=== PATIENT | male | born 1975 | race Two or more races ===

== ENCOUNTER 2020-10-09 02:59 | Emergency (ER) | payer OTHER, SELFPAY ==
[2020-10-09] VITALS (14 sets, daily range): BP systolic 130–176; BP diastolic 87–103; PULSE 70–93; RESP 14–98; TEMP 36.2–36.4; O2SAT 96–100
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
--- NOTE | ~2020-10-09 | XR_ITS ---
EXAMINATION: XR shoulder LT min 2V DATE: 10/09/2020 04:40 INDICATION: Postreduction left shoulder dislocation TECHNIQUE: AP and transscapular Y views of the left shoulder were obtained. COMPARISON: None FINDINGS: Successful reduction of previously dislocated left glenohumeral joint. Alignment is now normal. Hill- Sachs fracture trough at the posterolateral aspect of the humeral head. No other fractures identified . Acromioclavicular joint space is normal. The glenohumeral joint space is obliquely profiled limitin g assessment for joint space narrowing. Soft tissues are unremarkable. IMPRESSION: 1. Successful reduction to anatomic alignment of the previously dislocated left glenohumeral joint. 2. Hill-Sachs fracture deformity at the left humeral head. Reviewed, dictated and finalized at location A. [facility]
[2020-10-09] MEDS: HYDROmorphone HCL INJ (*CRX) 1 MG/ML SYR IV PUSH (03:11)
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
[2020-10-09] MEDS: PROPOFOL IV EMULSION 200 MG/20 ML VIAL 80 MG IV PUSH (04:24)
[2020-10-09] MEDS: SODIUM CHLORIDE 0.9% IV 1,000 ML 999 ML (04:25)
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
== END 2020-10-09 07:59 | disposition home or self-care (01) ==
PROVIDERS: Emergency Provider Emergency Medicine
DX: S43.015A Anterior dislocation of left humerus, initial encounter (principal); V48.6XXA Car passenger injured in noncollision transport accident in traffic accident, initial encounter
CPT/HCPCS: 23650; 73030; 96374; 99285; J1170; J2704; J7030